=== PATIENT | male | born 1985 | race Caucasian/White ===

== ENCOUNTER 2018-05-27 01:50 | Emergency (ER) | payer SELFPAY ==
[2018-05-27] MEDS ORDERED: Adacel (T-DAP) 0.5 ML VIAL ONE (03:47)
[2018-05-27] MEDS ORDERED: Clindamycin 150 MG CAP ONE (04:08)
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
== END 2018-05-27 04:53 ==
LOC: ERS 01:50
DX: S01.111A Laceration without foreign body of right eyelid and periocular area, initial encounter (principal); W55.32XA Struck by other hoof stock, initial encounter
CPT/HCPCS: 70450; 70486; 90471; 90715; 96374; J2270